=== PATIENT | male | born 1975 | race Caucasian/White ===

== ENCOUNTER 2020-11-13 13:13 | Emergency (ER) | payer OTHER, MEDICAID, SELFPAY ==
[2020-11-13 13:49] VITALS: BP 142/59; PULSE 60; RESP 18; TEMP 36.8; O2SAT 98; BMI 25.1
--- NOTE | 2020-11-13 13:55 | DI.US.S_ITS ---
PROCEDURE: US PERIPH VENOUS LOW EXTREM LT INDICATIONS: SWELLING, calf pain TECHNIQUE: Real-time imaging, as well as color and pulse Doppler interrogation, were performed of the lower extremity deep veins from the inguinal ligament to the popliteal fossa. COMPARISON: None. FINDINGS: The common femoral, femoral and popliteal veins are normally compressible, and free of intraluminal thrombus. Color and pulse Doppler demonstrate normal phasic intraluminal flow. There is normal augmentation response to distal compression maneuver. IMPRESSION: No DVT found left lower extremity. Dictated by: Adiel Whitehead M.D. on 11/13/2020 at 14:46 Approved by: Adiel Whitehead M.D. on 11/13/2020 at 14:46
[2020-11-13 17:33] VITALS: BP 125/77; PULSE 52; RESP 12; O2SAT 100
--- NOTE | 2020-11-13 18:17 | ED.EXTPRO ---
HPI - Extremity Problem General Chief complaint: Extremity Problem,Nontraumatic Stated complaint: swollen calf/ankle Time Seen by Provider: 11/13/20 18:02 Source: patient Mode of arrival: Ambulatory Limitations: no limitations History of Present Illness HPI Narrative: Patient is a 45-year-old male here for evaluation of left lower extremity swelling. He did recently have a trip to [facility] and did some dirt biking but does not remember specific incident where he hurt his left leg. He has no chest pain or shortness of breath. Has never anything like this in the past. States he is positive for factor 5 Leiden and given his symptoms he was concerned about a blood clot. There is no skin rashes. Does have tenderness to the top of his calf and the back of his leg. He has never had a blood clot in the past. Related Data Allergies Allergy/AdvReac Type Severity Reaction Status Date / Time No Known Drug Allergies Allergy Verified 11/13/20 13:49 Review of Systems Constitutional Comments: No fevers Cardiovascular Comments: No chest pain Respiratory Comments: No shortness of breath Musculoskeletal Comments: Pain and swelling to the left calf Integumentary/Breasts Comments: No skin changes, no rashes Neurologic Comments: No tingling to his left lower extremity Hematologic/Lymphatic Comments: Factor 5 Leiden, not on anticoagulation Patient History Medical History Factor 5 Leiden mutation, heterozygous Social History Smoking Status: Never smoker Smoking Status: Never smoker alcohol intake frequency: a few times a week Substance Use Type: does not use Exam Initial Vital Signs Initial Vital Signs: Vital Signs Temperature 98.3 F 11/13/20 13:49 Pulse Rate 60 11/13/20 13:49 Respiratory Rate 18 11/13/20 13:49 Blood Pressure 142/59 H 11/13/20 13:49 Pulse Oximetry 98 11/13/20 13:49 Const General: cooperative and healthy appearing Resp Effort & Inspection: normal respiratory effort Auscultation: clear to auscultation bilaterally Cardio Rate: regular rate Rhythm: regular rhythm Skin General: no rashes or lesions noted Neuro General: patient alert, patient awake and patient oriented x3 Extrem General: capillary refill normal Other: Patient does have slight swelling to the left lower extremity compared to the right specifically around the left ankle. He is tender to palpation at the superior aspect of the left calf muscle. His left thighs unremarkable. Psych Appearance: grossly normal Course Orders Ordered: ED Orders 11/13/20 13:55 US perip venous low extrem lt Stat Vital Signs Vital signs: Vital Signs - 8 hr 11/13/20 13:49 11/13/20 17:33 Temperature 98.3 F Pulse Rate 60 52 L Respiratory Rate 18 12 Blood Pressure 142/59 H 125/77 Pulse Oximetry 98 100 MDM - Extremity (Nontraumatic) Imaging Data US - DVT: Radiologist's Impression: [address] [id number] ReportSigned Patient: Esteban Hester#: [id number]: 1975Acct:[id number]/Sex: 45 / MDate of Service: 11/13/20Loc: EDAccession Number: [id number] Procedure: US perip venous low extrem lt Ordering Provider: Jenelle Mendez D.O. PROCEDURE: US PERIPH VENOUS LOW EXTREM LT INDICATIONS: SWELLING, calf pain TECHNIQUE: Real-time imaging, as well as color and pulse Doppler interrogation, were performed of the lower extremity deep veins from the inguinal ligament to the popliteal fossa. COMPARISON: None. FINDINGS: The common femoral, femoral and popliteal veins are normally compressible, and free of intraluminal thrombus. Color and pulse Doppler demonstrate normal phasic intraluminal flow. There is normal augmentation response to distal compression maneuver. IMPRESSION: No DVT found left lower extremity. Dictated by: Adiel Whitehead M.D. on 11/13/2020 at 14:46 Approved by: Adiel Whitehead M.D. on 11/13/2020 at 14:46 [facility] Narrative Medical decision making narrative: Patient has no chest pain or shortness of breath. He has never had a blood clot in the past. The ultrasound today does not show any signs of a DVT. His physical exam is not consistent with a fracture. He has no specific trauma. Not consistent with heart failure. Not consistent with cellulitis. Unsure the exact etiology. Could potentially be the trip that he took recently. He has never had any kidney issues in the past. We did discuss things he could try at home to include keeping his legs elevated and also compression. Informed him that he did need to contact his primary doctor for further evaluation. He was given return precautions. Expressed understanding and agreement. Discharge Plan Departure Patient Disposition: Home Clinical Impression: Lower extremity edema Instructions: DI for Peripheral Edema-Unilateral Activity Restrictions/Additional Instructions: There was no blood clot noted on the ultrasound today. I do recommend that you keep your foot elevated. You can use compression stockings as needed. I recommend you follow-up with your primary doctor in the next week for continued evaluation. Return to the emergency department for any new or worsening symptoms
== END 2020-11-13 18:25 | disposition home or self-care (01) ==
PROVIDERS: Emergency Provider Emergency Medicine
DX: R60.0 Localized edema (principal)
CPT/HCPCS: 93971; 99281; 99283